=== PATIENT | male | born 1955 | race Caucasian/White ===

== ENCOUNTER 2019-10-03 11:37 | Emergency (ER) | payer OTHER ==
[~2019-10-03] VITALS: Ht 172.7 cm; Wt 58.9 kg
[2019-10-03 11:53] LABS: BASOPHILS % (AUTO) 1 % (0-10); EOSINOPHILS % (AUTO) 1 % (0-10); HEMATOCRIT 36 % (40-54); HEMOGLOBIN 12.1 G/DL (13.3-17.7); LYMPHOCYTES # (AUTO) 2.7 X 10^3 (1.0-4.0); LYMPHOCYTES % (AUTO) 61 % (12-44); MEAN CORPUSCULAR HEMOGLOBIN 33 PG (25-34); MEAN CORPUSCULAR HGB CONC 34 G/DL (32-36); MEAN CORPUSCULAR VOLUME 99 FL (80-99); MONOCYTES # (AUTO) 0.4 X 10^3 (0.0-1.0); MONOCYTES % (AUTO) 10 % (0-12); NEUTROPHILS # (AUTO) 1.3 X 10^3 (1.8-7.8); NEUTROPHILS % (AUTO) 28 % (42-75); PLATELET COUNT 189 10^3/uL (130-400); RED CELL DISTRIBUTION WIDTH 14.9 % (10.0-14.5); WHITE BLOOD COUNT 4.4 10^3/uL (4.3-11.0)
--- NOTE | 2019-10-03 11:54 | ED General ---
General Stated Complaint: ETOH Source of Information: Patient Exam Limitations: No Limitations History of Present Illness Date Seen by Provider: October 03, 2019 Time Seen by Provider: 11:40 Initial Comments Here by EMS with report of significant intoxication. Patient was found sleeping in the grass across from [employer]. Bystander found him and called police who called EMS. Patient did wake but was quite inebriated. Patient admits to drinking quite a bit of beer which she says he does to cover the pain. He is not very specific about the pain. Denies any injuries and is quite intoxicated appearing. No obvious injuries noted. Timing/Duration: 1 Hour Severity: Moderate Associated Systoms: No Cough, No Fever/Chills, No Nausea/Vomiting, No Shortness of Air Allergies and Home Medications Allergies Coded Allergies: No Known Drug Allergies (Unverified , 10/03/19) Patient Home Medication List Home Medication List Reviewed: Yes Review of Systems Review of Systems Constitutional: see HPI; No chills, No fever Gastrointestinal: No nausea, No vomiting Review of systems limited due to intoxication. Patient complained of pain but is not specific about where that at. Denies head pain or chest pain. Denies breathing problems. Past Jbrntnt-Wwewcz-Mejiwk Hx Past Med/Social Hx: Reviewed Nursing Past Med/Soc Hx Patient Social History Alcohol Use: Regular Use Alcohol Beverage of Choice: Beer Recreational Drug Use: No Smoking Status: Current Everyday Smoker Past Medical History Surgeries: Yes (abdominal surgery of some sort reported) Family Medical History Limited past medical surgical history due to intoxication. Physical Exam Vital Signs Vital Signs - First Documented 10/03/19 11:41 Temp 37.0 Pulse 90 Resp 23 B/P (MAP) 134/79 (97) Pulse Ox 96 O2 Delivery Room Air Capillary Refill : Height, Weight, BMI Height: '" Weight: lbs. oz. kg; BMI Method:Estimated General Appearance: No Apparent Distress, WD/WN HEENT: PERRL/EOMI, TMs Normal, Pharynx Normal, Other (no obvious head injury) Neck: Full Range of Motion, Normal Inspection, Non Tender, Supple Respiratory: Lungs Clear, Normal Breath Sounds Cardiovascular: No Murmur, Tachycardia Gastrointestinal: Non Tender, Soft Back: Normal Inspection, No CVA Tenderness, No Vertebral Tenderness Extremity: Normal Range of Motion, Non Tender Neurologic/Psychiatric: Other (slurred speech. Answers some questions appropriately. Follow simple commands.) Skin: Normal Color, Warm/Dry Progress/Results/Core Measures Suspected Sepsis SIRS Temperature: Pulse: Respiratory Rate: Laboratory Tests 10/03/19 11:45: White Blood Count 4.4 Blood Pressure / Mean: Laboratory Tests 10/03/19 11:45: Creatinine 0.77, Platelet Count 189, Total Bilirubin 0.2 Results/Orders Lab Results Laboratory Tests Test 10/03/19 11:45 10/03/19 13:20 Range/Units White Blood Count 4.4 4.3-11.0 10^3/uL Red Blood Count 3.63 L 4.35-5.85 10^6/uL Hemoglobin 12.1 L 13.3-17.7 G/DL Hematocrit 36 L 40-54 % Mean Corpuscular Volume 99 80-99 FL Mean Corpuscular Hemoglobin 33 25-34 PG Mean Corpuscular Hemoglobin Concent 34 32-36 G/DL Red Cell Distribution Width 14.9 H 10.0-14.5 % Platelet Count 189 130-400 10^3/uL Mean Platelet Volume 9.0 7.4-10.4 FL Neutrophils (%) (Auto) 28 L 42-75 % Lymphocytes (%) (Auto) 61 H 12-44 % Monocytes (%) (Auto) 10 0-12 % Eosinophils (%) (Auto) 1 0-10 % Basophils (%) (Auto) 1 0-10 % Neutrophils # (Auto) 1.3 L 1.8-7.8 X 10^3 Lymphocytes # (Auto) 2.7 1.0-4.0 X 10^3 Monocytes # (Auto) 0.4 0.0-1.0 X 10^3 Eosinophils # (Auto) 0.0 0.0-0.3 10^3/uL Basophils # (Auto) 0.0 0.0-0.1 10^3/uL Sodium Level 140 135-145 MMOL/L Potassium Level 4.3 3.6-5.0 MMOL/L Chloride Level 107 98-107 MMOL/L Carbon Dioxide Level 21 21-32 MMOL/L Anion Gap 12 5-14 MMOL/L Blood Urea Nitrogen 17 7-18 MG/DL Creatinine 0.77 0.60-1.30 MG/DL Estimat Glomerular Filtration Rate > 60 BUN/Creatinine Ratio 22 Glucose Level 104 70-105 MG/DL Calcium Level 8.4 L 8.5-10.1 MG/DL Corrected Calcium 8.7 8.5-10.1 MG/DL Total Bilirubin 0.2 0.1-1.0 MG/DL Aspartate Amino Transf (AST/SGOT) 55 H 5-34 U/L Alanine Aminotransferase (ALT/SGPT) 30 0-55 U/L Alkaline Phosphatase 68 40-136 U/L Total Protein 6.5 6.4-8.2 GM/DL Albumin 3.6 3.2-4.5 GM/DL Serum Alcohol 362 *H <10 MG/DL My Orders Orders - MAYURI JAIN MD General/Regular (10/03/19 Lunch) Vital Signs/I&O 10/03/19 11:41 Temp 37.0 Pulse 90 Resp 23 B/P (MAP) 134/79 (97) Pulse Ox 96 O2 Delivery Room Air Capillary Refill : Progress Note : Progress Note Seen and evaluated. IV, labs UA, UDS and CT head ordered. Monitor patient. We will continue 1 L normal saline fluid bolus initiated by EMS. 1320: Meal ordered. Patient sitting up and talking. [facility] with [facility]. This far there is no significant findings and CT head and chest x-ray are negative. UA is pending. Monitor patient. 1346: Patient is up and walking around and once to go. He is asking for pain medicine. He has tolerated full meal lunch without difficulty. Tylenol 650 mg by mouth ordered. He would prefer something stronger but states that that will be okay. Discharged home with return precautions. Patient verbalize understanding instructions and agreement with plan. Diagnostic Imaging Diagonstic Imaging: CT Plain Films/CT/US/NM/MRI: head Comments [facility] [place], [place] NAME: OLIVE HENRY [facility] REC#: [id number] PT STATUS: REG ER : 1955 PHYSICIAN: CHANDRIKA FONSECA APRN ADMIT DATE: 10/03/19/ER Signed Date of Exam:10/03/19 CT HEAD WO EXAMINATION: CT head without contrast. TECHNIQUE: Multiple contiguous axial images were obtained through the brain without the use of intravenous contrast. All CT scans use one or more of the following dose optimizing techniques: automated exposure control, MA and/or KvP adjustment based on a patient size and exam type, or iterative reconstruction. HISTORY: Altered mental status COMPARISON: None available. FINDINGS: The couch-white matter differentiation is normal. No mass effect or midline shift. The ventricles are normal in size and configuration. Basilar cisterns are patent. There are no intra- or extra-axial fluid collections. There is no intracranial hemorrhage. The orbits are normal. Paranasal sinuses are normal. Mastoid air cells are clear. No soft tissue abnormality is seen. No osseus lesions or fractures are seen. IMPRESSION: 1. No acute intracranial abnormality. Dictated by: Dictated on workstation # [id number] Dict: 10/03/19 1252 Trans: 10/03/19 1253 [id number] Interpreted by: NINA HAYNES MD Electronically signed by: NINA HAYNES MD 10/03/19 1253 Diagonstic Imaging: Xray Plain Films/CT/US/NM/MRI: chest Comments [facility] [place] [place] NAME: OLIVE HENRY [facility] REC#: [id number] PT STATUS: REG ER : 1955 PHYSICIAN: CHANDRIKA FONSECA APRN ADMIT DATE: 10/03/19/ER Signed Date of Exam:10/03/19 CHEST 1 VIEW, AP/PA ONLY EXAMINATION: Chest 1 view HISTORY: Altered mental status COMPARISON: None available. FINDINGS: The lungs are clear without edema or pneumonia. No pleural effusion or pneumothorax. Heart size is normal. There are old left-sided rib fractures. IMPRESSION: 1. Clear lungs. Dictated by: Dictated on workstation # [id number] Dict: 10/03/19 1253 Trans: 10/03/19 1254 [id number] Interpreted by: NINA HAYNES MD Electronically signed by: NINA HAYNES MD 10/03/19 1254 Departure Impression Primary Impression: Acute alcoholic intoxication Qualified Codes: F10.920 - Alcohol use, unspecified with intoxication, uncomplicated Additional Impression: Chronic pain Qualified Codes: G89.29 - Other chronic pain Disposition: 01 HOME, SELF-CARE Condition: Stable Departure-Patient Inst. Decision time for Depature: 13:47 Referrals: UNKNOWN (PCP/Family) Primary Care Physician Patient Instructions: ALCOHOL AND SUBSTANCE ABUSE, Chronic Pain (DC) Add. Discharge Instructions: Follow-up with your Dr. in a few days for recheck and further evaluation. You may take Tylenol/acetaminophen 650 mg every 6-8 hours as needed for pain. Return for worse pain, fever, vomiting, weakness, breathing problems or other concerns as needed. You need to decrease or quit your alcohol intake. MAYURI JAIN MD October 03, 2019 11:54
[2019-10-03 12:03] LABS: ALBUMIN 3.6 GM/DL (3.2-4.5); CHLORIDE 107 MMOL/L (98-107); POTASSIUM 4.3 MMOL/L (3.6-5.0); SODIUM 140 MMOL/L (135-145)
[2019-10-03 12:04] LABS: CALCIUM 8.4 MG/DL (8.5-10.1)
[2019-10-03 12:05] LABS: GLUCOSE 104 MG/DL (70-105); TOTAL PROTEIN 6.5 GM/DL (6.4-8.2)
[2019-10-03 12:06] LABS: CARBON DIOXIDE 21 MMOL/L (21-32)
[2019-10-03 12:07] LABS: BILIRUBIN,TOTAL 0.2 MG/DL (0.1-1.0)
[2019-10-03 12:09] LABS: ALKALINE PHOSPHATASE 68 U/L (40-136); CREATININE SERUM 0.77 MG/DL (0.60-1.30); GFR ESTIMATED > 60
[2019-10-03 12:10] LABS: BUN/CREATININE RATIO 22
[2019-10-03 12:12] LABS: ALANINE AMINOTRANSFERASE 30 U/L (0-55)
--- NOTE | 2019-10-03 12:54 | Diagnostic Imaging Report ---
EXAMINATION: CT head without contrast. TECHNIQUE: Multiple contiguous axial images were obtained through the brain without the use of intravenous contrast. All CT scans use one or more of the following dose optimizing techniques: automated exposure control, MA and/or KvP adjustment based on a patient size and exam type, or iterative reconstruction. HISTORY: Altered mental status COMPARISON: None available. FINDINGS: The couch-white matter differentiation is normal. No mass effect or midline shift. The ventricles are normal in size and configuration. Basilar cisterns are patent. There are no intra- or extra-axial fluid collections. There is no intracranial hemorrhage. The orbits are normal. Paranasal sinuses are normal. Mastoid air cells are clear. No soft tissue abnormality is seen. No osseus lesions or fractures are seen. IMPRESSION: 1. No acute intracranial abnormality. Dictated by: Dictated on workstation # [id number]
--- NOTE | 2019-10-03 12:55 | Diagnostic Imaging Report ---
EXAMINATION: Chest 1 view HISTORY: Altered mental status COMPARISON: None available. FINDINGS: The lungs are clear without edema or pneumonia. No pleural effusion or pneumothorax. Heart size is normal. There are old left-sided rib fractures. IMPRESSION: 1. Clear lungs. Dictated by: Dictated on workstation # [id number]
[2019-10-03] MEDS ORDERED: ACETAMINOPHEN 325 MG TABLET PO STA (13:45)
[2019-10-03 13:47] LABS: AMPHETAMINE SCREEN, URINE NEGATIVE (NEGATIVE); BARBITURATE SCREEN URINE NEGATIVE (NEGATIVE); BENZODIAZEPINES SCREEN URINE NEGATIVE (NEGATIVE); CANNABINOID SCREEN, URINE NEGATIVE (NEGATIVE); COCAINE SCREEN URINE NEGATIVE (NEGATIVE); METHADONE STAT NN (NEGATIVE); METHAMPHETAMINE SCREEN URINE S NEGATIVE (NEGATIVE); OPIATE SCREEN URINE NEGATIVE (NEGATIVE); OXYCODONE STAT NEGATIVE (NEGATIVE); PROPOXYPHENE STAT NEGATIVE (NEGATIVE); TRICYCLIC ANTIDEPRESSANTS SCRE NEGATIVE (NEGATIVE)
[2019-10-03 13:49] VITALS: BP 134/63
== END 2019-10-03 13:50 | disposition home or self-care (01) ==
LOC: EDUNIT# 11:37 → ER 11:39
DX: F10.129 Alcohol abuse with intoxication, unspecified (principal); G89.29 Other chronic pain; F17.200 Nicotine dependence, unspecified, uncomplicated; Y90.8 Blood alcohol level of 240 mg/100 ml or more
CPT/HCPCS: 36415; 70450; 71045; 80053; 80306; 80320; 85025